=== PATIENT | male | born 1955 | race Caucasian/White ===

== ENCOUNTER 2021-01-30 09:33 | Observation (INO) ==
[2021-01-30] MEDS ORDERED: Ondansetron 4 MG/2 ML VIAL IVP PRN (13:04)
[2021-01-30] MEDS ORDERED: Naloxone 0.4 MG/ML INJ IVP PRN (13:04)
[2021-01-30] MEDS: Acetaminophen 325 MG TABLET PO PRN ×2 (13:17→21:40)
[2021-01-30 14:09] LABS: Basophils % 0.4 %; Eosinophils # 0.3 K/mcL (0.0-0.6); Eosinophils % 3.3 %; Hematocrit 42.1 % (37.5-50.1); Hemoglobin 13.8 g/dL (12.9-16.9); Immature Granulocytes % 0.5 % (0-4); Lymphocytes % 40.2 %; Mean Corpuscular HGB Conc 32.8 g/dL (31.6-35.5); Mean Corpuscular Volume 85.6 fL (83.0-100.0); Mean Platelet Volume 9.9 fL (9.4-12.4); Monocytes # 0.6 K/mcL (0.0-1.3); Monocytes % 7.8 %; Neutrophils # 3.6 K/mcL (1.6-8.9); Platelet Count 236 K/mcL (140-400); Red Blood Count 4.92 M/mcL (4.19-5.50); Red Cell Distribution Width 13.4 % (11.5-14.5); Segmented Neutrophils % 47.8 %; White Blood Count 7.5 K/mcL (4.3-11.1)
[2021-01-30 14:17] LABS: Prothrombin Time 11.5 Seconds (9.4-12.1)
[2021-01-30 14:26] LABS: BUN/Creatinine Ratio 18 (6-26); Blood Urea Nitrogen 15 mg/dL (8-23); Calcium 8.8 mg/dL (8.6-10.3); Carbon Dioxide 21 mEq/L (23-29); Chloride 106 mEq/L (98-107); Glucose 104 mg/dL (70-105); Osmolality,Calculated 281 (280-300); Potassium 4.6 mEq/L (3.5-5.1); Sodium 135 mEq/L (136-145); Troponin I < 0.03 ng/mL (< 0.04); eGFR For African Americans > 60 (> 60); eGFR For Non-African Americans > 60 (> 60)
[2021-01-30] MEDS ORDERED: Hyoscyamine SL 0.125 MG TAB.SUBL PO PRN (14:32)
[2021-01-30] MEDS ORDERED: Ranolazine 500 MG TAB.ER.12H PO SCH (21:00)
[2021-01-31 01:13] LABS: Basophils # 0.1 K/mcL (0.0-0.2); Basophils % 0.6 %; Eosinophils # 0.3 K/mcL (0.0-0.6); Eosinophils % 3.3 %; Hematocrit 42.3 % (37.5-50.1); Hemoglobin 13.7 g/dL (12.9-16.9); Immature Granulocytes % 0.5 % (0-4); Lymphocytes # 2.6 K/mcL (0.6-4.6); Lymphocytes % 31.9 %; Mean Corpuscular HGB Conc 32.4 g/dL (31.6-35.5); Mean Corpuscular Volume 86.5 fL (83.0-100.0); Mean Platelet Volume 9.8 fL (9.4-12.4); Monocytes # 0.6 K/mcL (0.0-1.3); Monocytes % 7.6 %; Neutrophils # 4.5 K/mcL (1.6-8.9); Platelet Count 221 K/mcL (140-400); Red Blood Count 4.89 M/mcL (4.19-5.50); Red Cell Distribution Width 13.5 % (11.5-14.5); Segmented Neutrophils % 56.1 %; White Blood Count 8.1 K/mcL (4.3-11.1)
[2021-01-31 01:34] LABS: BUN/Creatinine Ratio 18 (6-26); Blood Urea Nitrogen 17 mg/dL (8-23); Calcium 8.9 mg/dL (8.6-10.3); Carbon Dioxide 25 mEq/L (23-29); Chloride 107 mEq/L (98-107); Chol/HDL Ratio 3.7 (0-4.9); Cholesterol 106 mg/dL (< 200); Glucose 136 mg/dL (70-105); HDL Cholesterol 29 mg/dL (40-59); LDL Cholesterol,Calculated 26 mg/dL (< 100); Magnesium 1.8 mg/dL (1.6-2.6); Osmolality,Calculated 288 (280-300); Potassium 4.2 mEq/L (3.5-5.1); Sodium 137 mEq/L (136-145); Triglycerides 256 mg/dL (< 150); eGFR For African Americans > 60 (> 60); eGFR For Non-African Americans > 60 (> 60)
[2021-01-31 08:15] LABS: Thyroid Stimulating Hormone 3.544 mcIU/mL (0.340-5.600)
[2021-01-31] MEDS: Aspirin Enteric Coated 81 MG Tablet PO SCH (08:43)
[2021-01-31] MEDS: Magnesium Oxide 400 MG TABLET PO SCH (08:43)
[2021-01-31] MEDS: *HR* Enoxaparin 40 MG/0.4 ML SYRINGE SQ SCH (08:43)
[2021-01-31] MEDS ORDERED: lisinopriL 20 MG TABLET PO SCH (09:00)
[2021-01-31] MEDS ORDERED: Perflutren Lipid Microsphere 1.3 ML in 0.9 % Sodium Chloride 8.7 ML IVP PRN (11:46)
[2021-01-31] MEDS: Ranolazine 500 MG TAB.ER.12H PO SCH (20:36)
[2021-02-01 04:09] LABS: BUN/Creatinine Ratio 17 (6-26); Blood Urea Nitrogen 15 mg/dL (8-23); Calcium 9.4 mg/dL (8.6-10.3); Carbon Dioxide 23 mEq/L (23-29); Chloride 105 mEq/L (98-107); Glucose 112 mg/dL (70-105); Magnesium 1.9 mg/dL (1.6-2.6); Osmolality,Calculated 286 (280-300); Potassium 4.3 mEq/L (3.5-5.1); Sodium 137 mEq/L (136-145); eGFR For African Americans > 60 (> 60); eGFR For Non-African Americans > 60 (> 60)
[2021-02-01] MEDS: *HR* Enoxaparin 40 MG/0.4 ML SYRINGE SQ SCH (06:04)
[2021-02-01] MEDS: Magnesium Oxide 400 MG TABLET PO SCH (08:49)
[2021-02-01] MEDS: Ranolazine 500 MG TAB.ER.12H PO SCH (08:49)
[2021-02-01] MEDS: Aspirin Enteric Coated 81 MG Tablet PO SCH (08:49)
[2021-02-01] MEDS ORDERED: lisinopriL 20 MG TABLET PO SCH (09:00)
[2021-02-01 11:30] VITALS: BP 118/77; PULSE 76; TEMP 97.9; O2SAT 98
== END 2021-02-01 13:45 | disposition home or self-care (01) ==
LOC: 2ANU → SUATTDRO 12:23
PROVIDERS: ADMIT Pharmacist; ATTEND Internal Medicine

== ENCOUNTER 2021-08-04 16:01 | Inpatient (IN) ==
[2021-08-04] MEDS ORDERED: Naloxone 0.4 MG/ML INJ IVP PRN (20:51)
[2021-08-04] MEDS ORDERED: Ondansetron 4 MG/2 ML VIAL IVP PRN (20:51)
[2021-08-04] MEDS ORDERED: Nitroglycerin 0.4 MG TAB.SUBL SL PRN (20:53)
[2021-08-04] MEDS ORDERED: Perflutren Lipid Microsphere 1.3 ML in 0.9 % Sodium Chloride 8.7 ML IVP PRN (23:38)
[2021-08-04] MEDS ORDERED: Morphine Sulfate 2 MG/ML SYRINGE IVP PRN (23:50)
[2021-08-05 00:32] LABS: Basophils % 0.6 %; Eosinophils # 0.2 K/mcL (0.0-0.6); Eosinophils % 3.4 %; Hematocrit 42.8 % (37.5-50.1); Hemoglobin 14.3 g/dL (12.9-16.9); Immature Granulocytes % 0.6 % (0-4); Lymphocytes # 2.3 K/mcL (0.6-4.6); Lymphocytes % 33.9 %; Mean Corpuscular HGB Conc 33.4 g/dL (31.6-35.5); Mean Corpuscular Hemoglobin 28.4 pg (28.0-33.3); Mean Corpuscular Volume 85.1 fL (83.0-100.0); Mean Platelet Volume 10.1 fL (9.4-12.4); Monocytes # 0.5 K/mcL (0.0-1.3); Monocytes % 6.9 %; Neutrophils # 3.7 K/mcL (1.6-8.9); Platelet Count 205 K/mcL (140-400); Red Blood Count 5.03 M/mcL (4.19-5.50); Red Cell Distribution Width 13.5 % (11.5-14.5); Segmented Neutrophils % 54.6 %; White Blood Count 6.7 K/mcL (4.3-11.1)
[2021-08-05 00:38] LABS: INR 1.1; Prothrombin Time 12.2 Seconds (9.4-12.1)
[2021-08-05 00:41] LABS: Activated Partial Thrombo Time 32.9 Seconds (26.0-36.0)
[2021-08-05 00:53] LABS: BUN/Creatinine Ratio 14 (6-26); Blood Urea Nitrogen 15 mg/dL (8-23); Calcium 8.8 mg/dL (8.6-10.3); Carbon Dioxide 29 mEq/L (23-29); Chloride 102 mEq/L (98-107); Cholesterol 115 mg/dL (< 200); Glucose 207 mg/dL (70-105); HDL Cholesterol 29 mg/dL (40-59); LDL Cholesterol,Calculated 49 mg/dL (< 100); Osmolality,Calculated 293 (280-300); Potassium 4.1 mEq/L (3.5-5.1); Sodium 138 mEq/L (136-145); Triglycerides 185 mg/dL (< 150); eGFR For African Americans > 60 (> 60); eGFR For Non-African Americans > 60 (> 60)
[2021-08-05] MEDS ORDERED: Regadenoson 0.4 MG/5 ML SYRINGE IVP ONE (06:36)
[2021-08-05] MEDS: *HR* Heparin 5,000 UNIT/ML VIAL SQ SCH ×3 (07:11→20:41)
[2021-08-05] MEDS: lisinopriL 10 MG TABLET PO SCH (08:37)
[2021-08-05] MEDS: Famotidine 20 MG TABLET PO SCH ×2 (08:37→20:40)
[2021-08-05] MEDS: Aspirin Enteric Coated 81 MG Tablet PO SCH (08:37)
[2021-08-05] MEDS ORDERED: Furosemide 40 MG/4 ML VIAL IVP ONE (12:36)
[2021-08-05] MEDS: Isosorbide MONOnitrate (24 HR) 30 MG TAB.ER.24H PO SCH (15:25)
[2021-08-05] MEDS ORDERED: Hyoscyamine SL 0.125 MG TAB.SUBL PO PRN (16:03)
[2021-08-05] MEDS: Acetaminophen 325 MG TABLET PO PRN (17:58)
[2021-08-06] MEDS: Acetaminophen 325 MG TABLET PO PRN (01:03)
[2021-08-06 04:43] LABS: Hematocrit 44.2 % (37.5-50.1); Hemoglobin 14.4 g/dL (12.9-16.9); Mean Corpuscular HGB Conc 32.6 g/dL (31.6-35.5); Mean Corpuscular Hemoglobin 27.9 pg (28.0-33.3); Mean Corpuscular Volume 85.7 fL (83.0-100.0); Mean Platelet Volume 9.9 fL (9.4-12.4); Platelet Count 219 K/mcL (140-400); Red Blood Count 5.16 M/mcL (4.19-5.50); Red Cell Distribution Width 13.7 % (11.5-14.5); White Blood Count 9.1 K/mcL (4.3-11.1)
[2021-08-06 05:01] LABS: BUN/Creatinine Ratio 21 (6-26); Blood Urea Nitrogen 24 mg/dL (8-23); Calcium 9.2 mg/dL (8.6-10.3); Carbon Dioxide 28 mEq/L (23-29); Chloride 103 mEq/L (98-107); Glucose 138 mg/dL (70-105); Osmolality,Calculated 290 (280-300); Potassium 3.9 mEq/L (3.5-5.1); Sodium 137 mEq/L (136-145); eGFR For African Americans > 60 (> 60); eGFR For Non-African Americans > 60 (> 60)
[2021-08-06] MEDS: *HR* Heparin 5,000 UNIT/ML VIAL SQ SCH ×3 (06:15→21:07)
[2021-08-06] MEDS: Aspirin Enteric Coated 81 MG Tablet PO SCH (08:01)
[2021-08-06] MEDS: Famotidine 20 MG TABLET PO SCH ×2 (08:02→21:05)
[2021-08-06] MEDS: lisinopriL 10 MG TABLET PO SCH (08:02)
[2021-08-06] MEDS: Isosorbide MONOnitrate (24 HR) 30 MG TAB.ER.24H PO SCH (08:02)
[2021-08-06 11:19] LABS: Thyroid Stimulating Hormone 1.636 mcIU/mL (0.340-5.600)
[2021-08-06] MEDS ORDERED: Furosemide 20 MG TABLET PO PRN (14:09)
[2021-08-07] MEDS: *HR* Heparin 5,000 UNIT/ML VIAL SQ SCH ×3 (05:32→21:18)
[2021-08-07] MEDS: Aspirin Enteric Coated 81 MG Tablet PO SCH (08:59)
[2021-08-07] MEDS: lisinopriL 10 MG TABLET PO SCH (08:59)
[2021-08-07] MEDS: Famotidine 20 MG TABLET PO SCH ×2 (09:00→21:18)
[2021-08-07] MEDS: Isosorbide MONOnitrate (24 HR) 30 MG TAB.ER.24H PO SCH (09:00)
[2021-08-07 10:13] LABS: Estimated Average Glucose 134 mg/dl; Hemoglobin A1C 6.3 %
[2021-08-08] MEDS: *HR* Heparin 5,000 UNIT/ML VIAL SQ SCH ×2 (05:15→12:17)
[2021-08-08] MEDS: Isosorbide MONOnitrate (24 HR) 30 MG TAB.ER.24H PO SCH (07:54)
[2021-08-08] MEDS: Aspirin Enteric Coated 81 MG Tablet PO SCH (07:54)
[2021-08-08] MEDS: Famotidine 20 MG TABLET PO SCH ×2 (07:54→21:17)
[2021-08-08] MEDS: lisinopriL 10 MG TABLET PO SCH (07:54)
[2021-08-08] MEDS ORDERED: *HR* FentaNYL (PF) 100 MCG/2 ML VIAL ONE (08:24)
[2021-08-08] MEDS ORDERED: *HR* Midazolam HCl 2 MG/2 ML VIAL ONE (08:25)
[2021-08-08] MEDS ORDERED: 0.9 % Sodium Chloride 1,000 ML ONE ×2 (08:25→09:21)
[2021-08-08] MEDS ORDERED: Heparin 1,000 UNITS/500 mL 500 ML ONE (09:21)
[2021-08-08] MEDS ORDERED: *HR* Heparin 10,000 UNIT/10 ML VIAL ONE (09:21)
[2021-08-08] MEDS ORDERED: ISOVUE-370 200 ML INFUS..BTL ONE (09:21)
[2021-08-08] MEDS ORDERED: Nitroglycerin 1,000 MCG/5 ML VIAL IV ONE (09:22)
[2021-08-08] MEDS ORDERED: *HR* LORazepam 2 MG/ML VIAL IVP ONE (11:08)
[2021-08-08] MEDS: Acetaminophen 325 MG TABLET PO PRN (12:03)
[2021-08-08] MEDS ORDERED: Ondansetron 4 MG/2 ML VIAL IVP PRN (17:24)
[2021-08-08] MEDS ORDERED: Acetaminophen 325 MG TABLET PO PRN (17:24)
[2021-08-08] MEDS ORDERED: Nitroglycerin 0.4 MG TAB.SUBL SL PRN (17:24)
[2021-08-08] MEDS ORDERED: Morphine Sulfate 2 MG/ML SYRINGE IVP PRN (17:24)
[2021-08-08] MEDS ORDERED: Furosemide 20 MG TABLET PO PRN (17:24)
[2021-08-08] MEDS ORDERED: Hyoscyamine SL 0.125 MG TAB.SUBL PO PRN (17:24)
[2021-08-08] MEDS ORDERED: Naloxone 0.4 MG/ML INJ IVP PRN (17:24)
[2021-08-08] MEDS ORDERED: Perflutren Lipid Microsphere 1.3 ML in 0.9 % Sodium Chloride 8.7 ML IVP PRN (17:24)
[2021-08-08 18:54] LABS: Basophils # 0.1 K/mcL (0.0-0.2); Basophils % 0.5 %; Eosinophils # 0.1 K/mcL (0.0-0.6); Eosinophils % 1.2 %; Hematocrit 46.2 % (37.5-50.1); Hemoglobin 15.4 g/dL (12.9-16.9); Immature Granulocytes % 0.4 % (0-4); Lymphocytes # 2.3 K/mcL (0.6-4.6); Lymphocytes % 22.4 %; Mean Corpuscular HGB Conc 33.3 g/dL (31.6-35.5); Mean Corpuscular Hemoglobin 28.3 pg (28.0-33.3); Mean Corpuscular Volume 84.8 fL (83.0-100.0); Mean Platelet Volume 10.1 fL (9.4-12.4); Monocytes # 0.7 K/mcL (0.0-1.3); Monocytes % 6.4 %; Platelet Count 246 K/mcL (140-400); Red Blood Count 5.45 M/mcL (4.19-5.50); Red Cell Distribution Width 13.8 % (11.5-14.5); Segmented Neutrophils % 69.1 %; White Blood Count 10.2 K/mcL (4.3-11.1)
[2021-08-08 19:04] LABS: INR 1.1; Prothrombin Time 11.8 Seconds (9.4-12.1)
[2021-08-08 19:07] LABS: Activated Partial Thrombo Time 30.6 Seconds (26.0-36.0)
[2021-08-08 19:09] LABS: BUN/Creatinine Ratio 16 (6-26); Blood Urea Nitrogen 20 mg/dL (8-23); Calcium 9.3 mg/dL (8.6-10.3); Carbon Dioxide 22 mEq/L (23-29); Chloride 105 mEq/L (98-107); Chol/HDL Ratio 4.3 (0-4.9); Cholesterol 137 mg/dL (< 200); Glucose 142 mg/dL (70-105); HDL Cholesterol 32 mg/dL (40-59); LDL Cholesterol,Calculated 42 mg/dL (< 100); Osmolality,Calculated 285 (280-300); Potassium 4.1 mEq/L (3.5-5.1); Sodium 135 mEq/L (136-145); Triglycerides 317 mg/dL (< 150); eGFR For African Americans > 60 (> 60); eGFR For Non-African Americans 58 (> 60)
[2021-08-08] MEDS: Chlorhexidine Rinse 15 ML MOUTHWASH MM SCH (21:16)
[2021-08-08] MEDS ORDERED: *HR* Heparin 5,000 UNIT/ML VIAL SQ SCH (22:00)
[2021-08-08] MEDS ORDERED: *HR* Enoxaparin 40 MG/0.4 ML SYRINGE SQ ONE (22:00)
[2021-08-09] MEDS: Chlorhexidine Rinse 15 ML MOUTHWASH MM SCH ×2 (05:30→20:52)
[2021-08-09] MEDS: *HR* Enoxaparin 40 MG/0.4 ML SYRINGE SQ SCH (05:30)
[2021-08-09] MEDS ORDERED: NiCARdipine 2.5 MG/10 ML Syringe IVPB ONE (05:57)
[2021-08-09] MEDS ORDERED: DOBUTamine 1,000 MG/250 ML BAG ONE (05:57)
[2021-08-09] MEDS ORDERED: Papaverine 60 MG/2 ML VIAL IVP ONE (05:58)
[2021-08-09 06:00] LABS: VBG Ionized Calcium 1.21 mmol/L (1.15-1.35)
[2021-08-09] MEDS ORDERED: CeFAZolin Syr 2,000MG/20 ML 2,000 MG/20 ML SYRINGE IVPB ONE (06:00)
[2021-08-09] MEDS ORDERED: Aspirin 81 MG TAB.CHEW PO ONE (06:00)
[2021-08-09] MEDS ORDERED: *HR* Midazolam HCl 5 MG/5 ML VIAL IVP ONE (06:02)
[2021-08-09] MEDS ORDERED: Vancomycin 1,500 MG/265 ML IV.SOLN IVPB ONE (06:03)
[2021-08-09] MEDS ORDERED: *HR* FentaNYL (PF) 250 MCG/5 ML VIAL ONE (06:03)
[2021-08-09 06:04] LABS: Basophils % 0.6 %; Eosinophils # 0.2 K/mcL (0.0-0.6); Eosinophils % 2.3 %; Hematocrit 45.6 % (37.5-50.1); Hemoglobin 14.8 g/dL (12.9-16.9); Immature Granulocytes % 0.6 % (0-4); Lymphocytes # 1.9 K/mcL (0.6-4.6); Lymphocytes % 26.6 %; Mean Corpuscular HGB Conc 32.5 g/dL (31.6-35.5); Mean Corpuscular Hemoglobin 27.9 pg (28.0-33.3); Monocytes # 0.6 K/mcL (0.0-1.3); Monocytes % 9.1 %; Neutrophils # 4.3 K/mcL (1.6-8.9); Platelet Count 204 K/mcL (140-400); Red Cell Distribution Width 13.5 % (11.5-14.5); Segmented Neutrophils % 60.8 %; White Blood Count 7.1 K/mcL (4.3-11.1)
[2021-08-09] MEDS ORDERED: niCARdipine 20 MG/200 ML MLS IVC ONE (06:04)
[2021-08-09] MEDS ORDERED: *HR* Rocuronium Bromide 50 MG/5 ML VIAL ONE (06:04)
[2021-08-09] MEDS ORDERED: *HR* Norepinephrine 4 MG/4 ML VIAL IVC ONE (06:04)
[2021-08-09] MEDS ORDERED: *HR* Etomidate 20 MG/10 ML AMPUL IVP ONE (06:05)
[2021-08-09] MEDS ORDERED: Protamine Sulfate 250 MG/25 ML VIAL IVP ONE (06:09)
[2021-08-09 06:25] LABS: BUN/Creatinine Ratio 19 (6-26); Blood Urea Nitrogen 22 mg/dL (8-23); Carbon Dioxide 24 mEq/L (23-29); Chloride 104 mEq/L (98-107); Glucose 131 mg/dL (70-105); Potassium 4.2 mEq/L (3.5-5.1); Sodium 137 mEq/L (136-145); eGFR For African Americans > 60 (> 60); eGFR For Non-African Americans > 60 (> 60)
[2021-08-09 06:26] LABS: Calcium 9.5 mg/dL (8.6-10.3); Magnesium 1.9 mg/dL (1.6-2.6); Osmolality,Calculated 289 (280-300); Phosphorous 3.4 mg/dL (2.7-4.5)
[2021-08-09] MEDS ORDERED: Sodium Bicarbonate 10 MEQ, Potassium Chloride 80 MEQ in CARDIOPLEGIC SOLUTION NO.1 1,00... PF ONE (07:00)
[2021-08-09] MEDS ORDERED: Norepinephrine 4 MG in 0.9 % Sodium Chloride 250 ML IVC PRN (07:00)
[2021-08-09] MEDS ORDERED: Heparin 15,000 UNIT in 0.9 % Sodium Chloride 500 ML IV ONE ×2 (07:00)
[2021-08-09] MEDS ORDERED: Buckersberg's Blood Cardioplegia PF ONE (07:00)
[2021-08-09] MEDS ORDERED: Mannitol 25% vial 3.25 GM, Magnesium Sulfate 2 GM, Sodium Bicarbonate 13 MEQ, Potassium... PF ONE ×2 (07:00)
[2021-08-09] MEDS ORDERED: del Nido Cardioplegia Solution PF ONE ×2 (07:00)
[2021-08-09 07:29] LABS: ABG Base Excess -2 mEq/L (-2 to 3); ABG Chloride 104 mEq/L (98-107); ABG Glucose 134 mg/dL (60-95); ABG HCO3 25 mEq/L (21-27); ABG Ionized Calcium 1.26 mmol/L (1.15-1.35); ABG Oxygen Saturation 100 % (95-98); ABG PCO2 49 mmHg (35-45); ABG PH 7.32 pH Units (7.32-7.45); ABG PO2 503 mmHg (85-104); ABG TCO2 27 mEq/L (20-26)
[2021-08-09] MEDS ORDERED: Ondansetron 4 MG/2 ML VIAL ONE (07:47)
[2021-08-09] MEDS ORDERED: Aspirin Enteric Coated 81 MG Tablet PO SCH (09:00)
[2021-08-09] MEDS ORDERED: lisinopriL 10 MG TABLET PO SCH (09:00)
[2021-08-09] MEDS ORDERED: *HR* Phenylephrine 10 MG/ML VIAL ONE (09:13)
[2021-08-09 09:27] LABS: ABG Base Excess -3 mEq/L (-2 to 3); ABG Chloride 104 mEq/L (98-107); ABG Glucose 196 mg/dL (60-95); ABG HCO3 23 mEq/L (21-27); ABG Ionized Calcium 1.22 mmol/L (1.15-1.35); ABG Oxygen Saturation 98 % (95-98); ABG PCO2 43 mmHg (35-45); ABG PH 7.34 pH Units (7.32-7.45); ABG PO2 120 mmHg (85-104); ABG TCO2 25 mEq/L (20-26)
[2021-08-09 10:07] LABS: ABG Base Excess -2 mEq/L (-2 to 3); ABG Chloride 106 mEq/L (98-107); ABG Glucose 182 mg/dL (60-95); ABG HCO3 24 mEq/L (21-27); ABG Ionized Calcium 1.21 mmol/L (1.15-1.35); ABG Oxygen Saturation 95 % (95-98); ABG PCO2 42 mmHg (35-45); ABG PH 7.36 pH Units (7.32-7.45); ABG PO2 77 mmHg (85-104); ABG TCO2 25 mEq/L (20-26)
[2021-08-09] MEDS ORDERED: Insulin Regular, Human 100 UNIT/ML IV PRN (10:48)
[2021-08-09] MEDS ORDERED: *HR* Dextrose 50 % in Water (Syg) 50 ML SYRINGE IVP PRN (10:48)
[2021-08-09] MEDS ORDERED: Potassium Chloride 40 MEQ/200 ML BAG IVPB PRN (10:48)
[2021-08-09] MEDS ORDERED: Calcium Gluconate 1gm/50mL 1 GM/50 ML BAG IVPB PRN (10:53)
[2021-08-09] MEDS ORDERED: *HR* FentaNYL (PF) 100 MCG/2 ML VIAL IVP PRN (10:53)
[2021-08-09] MEDS ORDERED: Albumin Human 5% 12.5 GM/250 ML IV.SOLN IVPB PRN (10:57)
[2021-08-09 10:58] LABS: ABG Base Excess -2 mEq/L (-2 to 3); ABG Chloride 105 mEq/L (98-107); ABG Glucose 165 mg/dL (60-95); ABG HCO3 23 mEq/L (21-27); ABG Ionized Calcium 1.19 mmol/L (1.15-1.35); ABG Oxygen Saturation 100 % (95-98); ABG PCO2 40 mmHg (35-45); ABG PH 7.37 pH Units (7.32-7.45); ABG PO2 264 mmHg (85-104); ABG TCO2 24 mEq/L (20-26)
[2021-08-09] MEDS ORDERED: DOBUTamine 1,000 MG/250 ML BAG IVC SCH (11:00)
[2021-08-09] MEDS ORDERED: Sugammadex Sodium 200 MG/2 ML VIAL IV ONE (11:04)
[2021-08-09] MEDS ORDERED: *HR* HYDROMORPHONE 2 MG/ML VIAL ONE (11:17)
[2021-08-09] MEDS: niCARdipine 20 MG/200 ML MLS IVC SCH ×3 (11:40→22:10)
[2021-08-09] MEDS ORDERED: Ketorolac 30 MG/ML VIAL IM ONE (11:44)
[2021-08-09] MEDS ORDERED: Ketorolac 30 MG/ML VIAL IVP ONE (11:58)
[2021-08-09 11:59] LABS: ABG Base Excess -3 mEq/L (-2 to 3); ABG HCO3 25 mEq/L (21-27); ABG Oxygen Saturation 99 % (95-98); ABG PCO2 59 mmHg (35-45); ABG PH 7.24 pH Units (7.32-7.45); ABG PO2 162 mmHg (85-104); ABG TCO2 27 mEq/L (20-26)
[2021-08-09 12:10] LABS: Basophils # 0.1 K/mcL (0.0-0.2); Basophils % 0.4 %; Eosinophils # 0.3 K/mcL (0.0-0.6); Hematocrit 44.7 % (37.5-50.1); Hemoglobin 14.3 g/dL (12.9-16.9); Immature Granulocytes % 1.3 % (0-4); Lymphocytes # 3.9 K/mcL (0.6-4.6); Lymphocytes % 15.7 %; Mean Corpuscular Hemoglobin 27.5 pg (28.0-33.3); Mean Platelet Volume 9.9 fL (9.4-12.4); Monocytes # 1.4 K/mcL (0.0-1.3); Monocytes % 5.8 %; Neutrophils # 18.7 K/mcL (1.6-8.9); Platelet Count 237 K/mcL (140-400); Red Cell Distribution Width 13.6 % (11.5-14.5); Segmented Neutrophils % 75.8 %
[2021-08-09 12:15] LABS: White Blood Count 24.6 K/mcL (4.3-11.1)
[2021-08-09 12:23] LABS: INR 1.2; Prothrombin Time 13.5 Seconds (9.4-12.1)
[2021-08-09 12:26] LABS: Activated Partial Thrombo Time 32.3 Seconds (26.0-36.0); BUN/Creatinine Ratio 20 (6-26); Blood Urea Nitrogen 21 mg/dL (8-23); Calcium 8.4 mg/dL (8.6-10.3); Carbon Dioxide 25 mEq/L (23-29); Chloride 106 mEq/L (98-107); Glucose 154 mg/dL (70-105); Magnesium 1.5 mg/dL (1.6-2.6); Osmolality,Calculated 290 (280-300); Potassium 4.5 mEq/L (3.5-5.1); Sodium 137 mEq/L (136-145); eGFR For African Americans > 60 (> 60); eGFR For Non-African Americans > 60 (> 60)
[2021-08-09] MEDS: *HR* FentaNYL (PF) 100 MCG/2 ML VIAL IVP PRN ×2 (12:30→15:15)
[2021-08-09] MEDS: Pantoprazole 40 MG VIAL IVP SCH (12:38)
[2021-08-09] MEDS: Isosorbide MONOnitrate (24 HR) 30 MG TAB.ER.24H PO SCH (13:26)
[2021-08-09] MEDS: Famotidine 20 MG TABLET PO SCH ×2 (13:27→20:52)
[2021-08-09] MEDS ORDERED: *HR* Heparin 10,000 UNIT/10 ML VIAL IR ONE (14:11)
[2021-08-09] MEDS ORDERED: Heparin 1,000 UNITS/500 mL IV.SOLN IR ONE (14:11)
[2021-08-09] MEDS: *HR* OxyCODONE/APAP 5/325 TABLET PO PRN ×2 (15:00→20:52)
[2021-08-09] MEDS ORDERED: Aspirin Enteric Coated 81 MG Tablet PO ONE (15:00)
[2021-08-09 16:43] LABS: ABG Base Excess -2 mEq/L (-2 to 3); ABG HCO3 22 mEq/L (21-27); ABG Oxygen Saturation 94 % (95-98); ABG PCO2 37 mmHg (35-45); ABG PH 7.39 pH Units (7.32-7.45); ABG PO2 71 mmHg (85-104); ABG TCO2 23 mEq/L (20-26)
[2021-08-09] MEDS: Ketorolac 30 MG/ML VIAL IVP SCH ×2 (18:15→23:32)
[2021-08-09] MEDS: Norepinephrine 4 MG/254 ML IV.SOLN IVC SCH (18:16)
[2021-08-09] MEDS: CeFAZolin 2 GM/120 ML BAG IVPB SCH ×2 (18:16→23:32)
[2021-08-09] MEDS ORDERED: Melatonin 3 MG TABLET PO PRN (23:22)
[2021-08-10] MEDS: *HR* OxyCODONE/APAP 5/325 TABLET PO PRN ×2 (03:05→08:32)
[2021-08-10 03:28] LABS: INR 1.1; Prothrombin Time 12.6 Seconds (9.4-12.1)
[2021-08-10 03:30] LABS: Activated Partial Thrombo Time 28.5 Seconds (26.0-36.0)
[2021-08-10 03:32] LABS: Basophils % 0.2 %; Immature Granulocytes % 0.5 % (0-4); Lymphocytes # 1.5 K/mcL (0.6-4.6); Lymphocytes % 12.3 %; Mean Corpuscular HGB Conc 33.4 g/dL (31.6-35.5); Mean Corpuscular Hemoglobin 28.2 pg (28.0-33.3); Mean Corpuscular Volume 84.4 fL (83.0-100.0); Mean Platelet Volume 10.1 fL (9.4-12.4); Monocytes # 1.3 K/mcL (0.0-1.3); Neutrophils # 9.1 K/mcL (1.6-8.9); Platelet Count 208 K/mcL (140-400); Red Cell Distribution Width 13.9 % (11.5-14.5)
[2021-08-10 03:37] LABS: Hemoglobin 12.7 g/dL (12.9-16.9)
[2021-08-10 03:57] LABS: BUN/Creatinine Ratio 22 (6-26); Blood Urea Nitrogen 20 mg/dL (8-23); Calcium 8.8 mg/dL (8.6-10.3); Carbon Dioxide 23 mEq/L (23-29); Chloride 104 mEq/L (98-107); Glucose 137 mg/dL (70-105); Osmolality,Calculated 285 (280-300); Potassium 4.3 mEq/L (3.5-5.1); Sodium 135 mEq/L (136-145); eGFR For African Americans > 60 (> 60); eGFR For Non-African Americans > 60 (> 60)
[2021-08-10] MEDS ORDERED: Heparin 1,000 UNITS/500 mL 500 ML ONE (05:07)
[2021-08-10] MEDS: Ketorolac 30 MG/ML VIAL IVP SCH (05:49)
[2021-08-10] MEDS: *HR* Enoxaparin 40 MG/0.4 ML SYRINGE SQ SCH (05:50)
[2021-08-10] MEDS: Norepinephrine 4 MG/254 ML IV.SOLN IVC SCH (06:07)
[2021-08-10] MEDS: niCARdipine 20 MG/200 ML MLS IVC SCH ×2 (06:07→08:36)
[2021-08-10] MEDS ORDERED: D5% in Water 1,000 ML IVC PRN ×2 (07:46→09:43)
[2021-08-10] MEDS ORDERED: *HR* Dextrose 50 % in Water (Syg) 50 ML SYRINGE IVP PRN ×2 (07:46→09:43)
[2021-08-10] MEDS ORDERED: Dextrose 4 GM Chewable Tablets PO PRN ×4 (07:46→09:43)
[2021-08-10] MEDS: Chlorhexidine Rinse 15 ML MOUTHWASH MM SCH (08:18)
[2021-08-10] MEDS: Isosorbide MONOnitrate (24 HR) 30 MG TAB.ER.24H PO SCH (08:19)
[2021-08-10] MEDS: Pantoprazole 40 MG VIAL IVP SCH (08:19)
[2021-08-10] MEDS: Famotidine 20 MG TABLET PO SCH (08:20)
[2021-08-10] MEDS ORDERED: Aspirin Enteric Coated 81 MG Tablet PO SCH (09:00)
[2021-08-10] MEDS: CeFAZolin 2 GM/120 ML BAG IVPB SCH (09:15)
[2021-08-10] MEDS ORDERED: *HR* FentaNYL (PF) 100 MCG/2 ML VIAL IVP PRN (09:43)
[2021-08-10] MEDS ORDERED: Acetaminophen 325 MG TABLET PO PRN (09:43)
[2021-08-10] MEDS ORDERED: Naloxone 0.4 MG/ML INJ IVP PRN (09:43)
[2021-08-10] MEDS ORDERED: Hyoscyamine SL 0.125 MG TAB.SUBL PO PRN (09:43)
[2021-08-10] MEDS ORDERED: Nitroglycerin 0.4 MG TAB.SUBL SL PRN (09:43)
[2021-08-10] MEDS ORDERED: Ondansetron 4 MG/2 ML VIAL IVP PRN (09:43)
[2021-08-10] MEDS ORDERED: Melatonin 3 MG TABLET PO PRN (09:43)
[2021-08-10] MEDS ORDERED: Potassium Chloride 40 MEQ/200 ML BAG IVPB PRN (09:43)
[2021-08-10] MEDS ORDERED: lisinopriL 20 MG TABLET PO SCH (09:43)
[2021-08-10] MEDS ORDERED: *HR* OxyCODONE/APAP 5/325 TABLET PO PRN (09:43)
[2021-08-10] MEDS ORDERED: Morphine Sulfate 2 MG/ML SYRINGE IVP PRN (09:43)
[2021-08-10] MEDS ORDERED: Furosemide 40 MG/4 ML VIAL IVP SCH (09:45)
[2021-08-10] MEDS ORDERED: Insulin LISPRO 300 UNITS/3 ML VIAL SUBQ SCH ×4 (11:30→21:00)
[2021-08-10 11:50] VITALS: TEMP 98.7
[2021-08-10 14:08] VITALS: BP 111/60; PULSE 80; O2SAT 95
[2021-08-10] MEDS ORDERED: CeFAZolin 2 GM/120 ML BAG IVPB SCH (16:00)
[2021-08-10] MEDS ORDERED: Chlorhexidine Rinse 15 ML MOUTHWASH MM SCH (21:00)
[2021-08-10] MEDS ORDERED: Famotidine 20 MG TABLET PO SCH (21:00)
[2021-08-11] MEDS ORDERED: *HR* Enoxaparin 40 MG/0.4 ML SYRINGE SQ SCH (06:00)
[2021-08-11] MEDS ORDERED: Aspirin Enteric Coated 81 MG Tablet PO SCH (09:00)
[2021-08-11] MEDS ORDERED: Isosorbide MONOnitrate (24 HR) 30 MG TAB.ER.24H PO SCH (09:00)
== END 2021-08-10 15:00 | disposition home or self-care (01) | DRG 234 ==
LOC: 3BNU → SUATTDRO 19:51 → ICNU 08-08 17:13
PROVIDERS: ADMIT Nurse Practitioner; ATTEND Internal Medicine